=== PATIENT | female | born 1940 | race Caucasian/White ===

== ENCOUNTER 2021-05-14 15:36 | Inpatient (IN) | payer MEDICARE ==
[2021-05-14 16:29] LABS: #Eosinphils 0.1 10x3/uL (0.0-0.5); #Monocytes 0.6 10x3/uL (0.0-1.1); #Neutrophils 9.7 10x3/uL (1.5-8.4); %Basophils 0.2 % (0.0-2.0); %Eosinophils 0.7 % (0.0-6.0); %Monocytes 4.9 % (0.0-10.0); %Neutrophils 85.7 % (40.0-75.0); Hemoglobin 10.3 g/dL (12.0-15.5); Mean Corpuscular Hemoglobin 33.1 pg (27.0-33.0); Mean Corpuscular Volume 97.4 fl (81.6-98.3); Mean Platelet Volume 9.7 fl (7.4-10.4); Platelet Count 201 10x3/uL (150-450); RBC Distribution Width 13.3 % (11.5-14.5); Red Blood Cell (RBC) Count 3.11 10x6/uL (3.90-5.03); White Blood Cell (WBC) Count 11.3 10x3/uL (3.5-10.5)
[2021-05-14 16:46] LABS: INR-International Normal Ratio 1.1; PTT 28.7 sec (22.0-33.0); Prothrombin Time 12.1 sec (9.5-12.1)
[2021-05-14 16:49] LABS: ALT (SGPT) 15 U/L (8-55); AST (SGOT) 29 U/L (5-34); Albumin 3.7 g/dL (3.4-4.8); Alkaline Phosphatase 45 U/L (40-110); Anion Gap 15 mmol/L (10-20); BUN (Urea Nitrogen) 27 mg/dL (9.8-20.1); Bilirubin, Total 0.8 mg/dL (0.2-1.2); Calc. Creatinine Clearance 0 mL/min (70-130); Calcium 9.1 mg/dL (7.8-10.44); Carbon Dioxide 19 mmol/L (23-31); Chloride 102 mmol/L (98-107); Globulin 3.5 g/dL (2.4-3.5); Glucose 113 mg/dL (83-110); Potassium 3.8 mmol/L (3.5-5.1); Protein, Total 7.2 g/dL (5.8-8.1); Sodium 132 mmol/L (136-145)
[2021-05-14 17:44] LABS: Bilirubin Neg (Negative); Blood, Urine 50 (Negative); Clarity Clear (Clear); Glucose, Urine (Dipstick) Normal (Negative); Ketone, Urine Negative (Negative); Leukocyte 500 (Negative); Nitrite Positive (Negative); Protein, Urine (Dipstick) 30 mg/dl (Neg-Trace)
[2021-05-14 17:58] LABS: RBC/HPF 0-3 HPF (0-3); Squamous Epithelial 0-3 HPF (0-3); Transitional Epithelial 0-3 HPF (None Seen)
[2021-05-14 17:59] LABS: Bacteria/HPF 4+ HPF (None Seen)
[2021-05-14] MEDS ORDERED: Azithromycin 500 MG VIAL ONE (18:30)
[2021-05-14] MEDS ORDERED: cefTRIAXone\\ROCEPHIN 2 GM VIAL ONE (18:30)
[2021-05-14 20:21] VITALS: BMI 23.2
[2021-05-14] MEDS: NS 0.9% w/ 20 MEQ KCL 1,000 ML/1,000 ML BAG IV SCH (20:48)
[2021-05-14] MEDS: Apixaban 5 MG TAB PO SCH (20:50)
[2021-05-14] MEDS: Simvastatin 10 MG TAB PO SCH (20:50)
[2021-05-14] MEDS: Cefepime 2 GM in Sodium Chloride 0.9% 100 ML IVPB SCH (22:20)
[2021-05-15] MEDS: Cefepime 2 GM in Sodium Chloride 0.9% 100 ML IVPB SCH ×3 (05:47→22:29)
[2021-05-15 06:09] LABS: #Basophils 0.1 10x3/uL (0.0-0.2); #Eosinphils 0.2 10x3/uL (0.0-0.5); #Monocytes 0.5 10x3/uL (0.0-1.1); #Neutrophils 4.9 10x3/uL (1.5-8.4); %Basophils 0.7 % (0.0-2.0); %Eosinophils 2.2 % (0.0-6.0); %Lymphocytes 16.1 % (18.0-47.0); %Monocytes 7.5 % (0.0-10.0); %Neutrophils 73.1 % (40.0-75.0); Mean Corpuscular HGB CONC 33.1 g/dL (32.0-36.0); Mean Corpuscular Hemoglobin 32.6 pg (27.0-33.0); Mean Corpuscular Volume 98.6 fl (81.6-98.3); Mean Platelet Volume 9.8 fl (7.4-10.4); Platelet Count 177 10x3/uL (150-450); RBC Distribution Width 13.4 % (11.5-14.5); Red Blood Cell (RBC) Count 2.76 10x6/uL (3.90-5.03); White Blood Cell (WBC) Count 6.8 10x3/uL (3.5-10.5)
[2021-05-15 06:22] LABS: Anion Gap 11 mmol/L (10-20); BUN (Urea Nitrogen) 19 mg/dL (9.8-20.1); Calc. Creatinine Clearance 56 mL/min (70-130); Calcium 8.2 mg/dL (7.8-10.44); Carbon Dioxide 18 mmol/L (23-31); Chloride 112 mmol/L (98-107); Glucose 90 mg/dL (83-110); Potassium 3.7 mmol/L (3.5-5.1); Sodium 137 mmol/L (136-145)
[2021-05-15] MEDS: NS 0.9% w/ 20 MEQ KCL 1,000 ML/1,000 ML BAG IV SCH ×2 (06:29→22:13)
[2021-05-15] MEDS: Apixaban 5 MG TAB PO SCH ×2 (09:00→22:13)
[2021-05-15] MEDS ORDERED: Azithromycin 500 MG in Sodium Chloride 0.9% 250 ML 250 ML IVPB SCH (16:30)
[2021-05-15] MEDS ORDERED: Atenolol 25 MG TAB PO SCH (22:00)
[2021-05-15] MEDS ORDERED: Cefepime 2 GM VIAL ONE (22:06)
[2021-05-15] MEDS: Simvastatin 10 MG TAB PO SCH (22:13)
[2021-05-16] MEDS: NS 0.9% w/ 20 MEQ KCL 1,000 ML/1,000 ML BAG IV SCH ×2 (03:57→12:00)
[2021-05-16 04:28] LABS: #Eosinphils 0.3 10x3/uL (0.0-0.5); #Monocytes 0.6 10x3/uL (0.0-1.1); #Neutrophils 5.2 10x3/uL (1.5-8.4); %Basophils 0.6 % (0.0-2.0); %Eosinophils 3.5 % (0.0-6.0); %Lymphocytes 15.1 % (18.0-47.0); %Monocytes 7.9 % (0.0-10.0); %Neutrophils 72.3 % (40.0-75.0); Mean Corpuscular HGB CONC 32.5 g/dL (32.0-36.0); Mean Corpuscular Hemoglobin 32.9 pg (27.0-33.0); Mean Corpuscular Volume 101.3 fl (81.6-98.3); Mean Platelet Volume 9.4 fl (7.4-10.4); Platelet Count 210 10x3/uL (150-450); RBC Distribution Width 13.3 % (11.5-14.5); Red Blood Cell (RBC) Count 3.04 10x6/uL (3.90-5.03); White Blood Cell (WBC) Count 7.2 10x3/uL (3.5-10.5)
[2021-05-16 04:53] LABS: Anion Gap 14 mmol/L (10-20); BUN (Urea Nitrogen) 14 mg/dL (9.8-20.1); Calc. Creatinine Clearance 58 mL/min (70-130); Calcium 8.5 mg/dL (7.8-10.44); Carbon Dioxide 17 mmol/L (23-31); Chloride 110 mmol/L (98-107); Glucose 117 mg/dL (83-110); Sodium 137 mmol/L (136-145)
[2021-05-16] MEDS ORDERED: Furosemide 40 MG/4 ML VIAL SLOW IVP SCH (06:00)
[2021-05-16] MEDS: Apixaban 5 MG TAB PO SCH ×2 (09:35→20:29)
[2021-05-16] MEDS ORDERED: Cefepime 2 GM in Sodium Chloride 0.9% 100 ML IVPB SCH (10:00)
[2021-05-16] MEDS ORDERED: hydrALAZINE 20 MG/ML VIAL SLOW IVP PRN (10:39)
[2021-05-16] MEDS: Atenolol 25 MG TAB PO SCH (20:27)
[2021-05-16] MEDS: Simvastatin 10 MG TAB PO SCH (20:28)
[2021-05-17] MEDS: NS 0.9% w/ 20 MEQ KCL 1,000 ML/1,000 ML BAG IV SCH ×3 (00:53→05:41)
[2021-05-17] MEDS: NIFEdipine XL 60 MG TAB PO SCH (08:40)
[2021-05-17] MEDS: Apixaban 5 MG TAB PO SCH ×2 (08:41→22:23)
[2021-05-17] MEDS: Furosemide 40 MG/4 ML VIAL SLOW IVP SCH (15:34)
[2021-05-17] MEDS: Simvastatin 10 MG TAB PO SCH (22:18)
[2021-05-17] MEDS: Atenolol 25 MG TAB PO SCH (22:18)
[2021-05-18] MEDS: NS 0.9% w/ 20 MEQ KCL 1,000 ML/1,000 ML BAG IV SCH (04:58)
[2021-05-18] MEDS: Furosemide 40 MG/4 ML VIAL SLOW IVP SCH (05:07)
[2021-05-18] MEDS: NIFEdipine XL 60 MG TAB PO SCH (09:52)
[2021-05-18] MEDS: Apixaban 5 MG TAB PO SCH ×2 (09:52→22:30)
[2021-05-18] MEDS ORDERED: Acetaminophen 500 MG TAB PO PRN (14:17)
[2021-05-18] MEDS: Atenolol 25 MG TAB PO SCH (22:29)
[2021-05-18] MEDS: Simvastatin 10 MG TAB PO SCH (22:30)
[2021-05-19] MEDS: Apixaban 5 MG TAB PO SCH ×2 (08:50→21:29)
[2021-05-19] MEDS ORDERED: Amlodipine 5 MG TAB PO SCH (09:00)
[2021-05-19] MEDS ORDERED: Lisinopril 20 MG TAB PO SCH (21:00)
[2021-05-19] MEDS: Simvastatin 10 MG TAB PO SCH (21:29)
[2021-05-19] MEDS: Atenolol 25 MG TAB PO SCH (21:32)
[2021-05-20] MEDS: Apixaban 5 MG TAB PO SCH (08:12)
[2021-05-20 08:26] VITALS: TEMP 97.6
[2021-05-20 11:38] VITALS: BP 105/67
== END 2021-05-20 12:28 | disposition home or self-care (01) | DRG 871 ==
LOC: CSHERS 15:36 → CSHTELE 18:58
PROVIDERS: ADMIT Family Medicine; ATTEND Family Medicine
DX: A41.9 Sepsis, unspecified organism (principal); J18.9 Pneumonia, unspecified organism; J96.01 Acute respiratory failure with hypoxia; N39.0 Urinary tract infection, site not specified; J44.0 Chronic obstructive pulmonary disease with (acute) lower respiratory infection; Z66 Do not resuscitate; E78.5 Hyperlipidemia, unspecified; I48.91 Unspecified atrial fibrillation; S42.002A Fracture of unspecified part of left clavicle, initial encounter for closed fracture; Z79.01 Long term (current) use of anticoagulants; Z79.82 Long term (current) use of aspirin; Z79.899 Other long term (current) drug therapy; Z90.710 Acquired absence of both cervix and uterus
CPT/HCPCS: 36415; 71045; 71275; 80048; 80053; 81003; 81015; 83605; 83735; 84484; 85025; 85610; 85730; 87040; 87086; 93005; 93010; 93306; 94640; 94760; 96365; 96368; J0456; J0692; J0696; J1940; J1956; J3480; J3490; J7050; J7620

== ENCOUNTER 2021-10-16 10:57 | Observation (INO) | payer MEDICARE ==
[2021-10-16 12:05] LABS: ALT (SGPT) 12 U/L (8-55); AST (SGOT) 36 U/L (5-34); Albumin 3.8 g/dL (3.4-4.8); Alkaline Phosphatase 44 U/L (40-110); Anion Gap 16 mmol/L (10-20); BUN (Urea Nitrogen) 20 mg/dL (9.8-20.1); Bilirubin, Total 0.4 mg/dL (0.2-1.2); CK (CPK) 56 U/L (29-168); Calc. Creatinine Clearance 0 mL/min (70-130); Calcium 8.5 mg/dL (7.8-10.44); Carbon Dioxide 18 mmol/L (23-31); Chloride 106 mmol/L (98-107); Globulin 3.2 g/dL (2.4-3.5); Glucose 95 mg/dL (83-110); Lipase 116 U/L (8-78); Sodium 136 mmol/L (136-145)
[2021-10-16 12:06] LABS: #Monocytes 0.3 10x3/uL (0.0-1.1); #Neutrophils 1.9 10x3/uL (1.5-8.4); %Basophils 0.3 % (0.0-2.0); %Monocytes 8.1 % (0.0-10.0); %Neutrophils 55.3 % (40.0-75.0); Hemoglobin 11.3 g/dL (12.0-15.5); Mean Corpuscular HGB CONC 32.7 g/dL (32.0-36.0); Mean Corpuscular Hemoglobin 32.1 pg (27.0-33.0); Mean Corpuscular Volume 98.3 fl (81.6-98.3); Mean Platelet Volume 9.3 fl (7.4-10.4); Platelet Count 191 10x3/uL (150-450); RBC Distribution Width 13.8 % (11.5-14.5); Red Blood Cell (RBC) Count 3.52 10x6/uL (3.90-5.03); White Blood Cell (WBC) Count 3.5 10x3/uL (3.5-10.5)
[2021-10-16] MEDS ORDERED: Acetaminophen 325 MG TAB PO PRN (13:33)
[2021-10-16] MEDS ORDERED: Ondansetron ODT 4 MG TAB PO PRN (13:33)
[2021-10-16] MEDS ORDERED: Sodium Chloride 0.9% 1,000 ML IV SCH (13:45)
[2021-10-16] MEDS ORDERED: Guaifenesin DM 100-10/5 ML UDCUP PO PRN (14:01)
[2021-10-16 14:22] LABS: SARS-CoV-2 NAA Rapid Test DETECTED (NotDetected)
[2021-10-16 17:47] VITALS: BP 159/77
[2021-10-16] MEDS ORDERED: Simvastatin 10 MG TAB PO SCH (21:00)
[2021-10-16] MEDS ORDERED: Gemfibrozil 600 MG TAB PO SCH (21:00)
[2021-10-16] MEDS ORDERED: guaiFENesin ER 600 MG TAB PO SCH (21:00)
[2021-10-16] MEDS ORDERED: Aspirin Chewable 81 MG TAB PO SCH (21:00)
[2021-10-16] MEDS ORDERED: Apixaban 5 MG TAB PO SCH (21:00)
[2021-10-17] MEDS ORDERED: Atenolol 50 MG TAB PO SCH (09:00)
[2021-10-17] MEDS ORDERED: Cholecalciferol 1,000 UNITS (25 MCG) TAB PO SCH (09:00)
[2021-10-17] MEDS ORDERED: Zinc Sulfate 220 MG CAP PO SCH (09:00)
[2021-10-17] MEDS ORDERED: Ascorbic Acid 500 mg Chewable Tablet PO SCH (09:00)
== END 2021-10-16 19:45 | disposition home or self-care (01) ==
LOC: CSHERS 10:57 → CSHERHOLD 14:21
PROVIDERS: ADMIT Family Medicine; ATTEND Family Medicine
DX: R55 Syncope and collapse (principal); E86.0 Dehydration; U07.1 COVID-19; I48.21 Permanent atrial fibrillation; J44.9 Chronic obstructive pulmonary disease, unspecified; I10 Essential (primary) hypertension; E78.5 Hyperlipidemia, unspecified; D64.9 Anemia, unspecified; Z79.01 Long term (current) use of anticoagulants; Z79.899 Other long term (current) drug therapy; Z87.891 Personal history of nicotine dependence
CPT/HCPCS: 71045; 82550; 83605; 83690; 83880; 84484; 93005; 99284; G0378; U0002; 36415; 80053; 84443; 85025

== ENCOUNTER 2023-06-16 10:26 | Outpatient (CLI) | payer MEDICARE | END 2023-06-16 10:27 | disposition home or self-care (01) | LOC: CSHMAMMO 10:26 | PROVIDERS: ATTEND Internal Medicine | DX: Z13.820 Encounter for screening for osteoporosis (principal); S22.41XA Multiple fractures of ribs, right side, initial encounter for closed fracture; M81.0 Age-related osteoporosis without current pathological fracture; Z78.0 Asymptomatic menopausal state | CPT/HCPCS: 77080 ==

== ENCOUNTER 2025-06-04 09:10 | Outpatient (CLI) | payer OTHER ==
[2025-06-04 11:38] LABS: Estimated GFR - POC 55.0
[2025-06-04] MEDS ORDERED: Iopamidol 370 76% 100 ML VIAL ONE (14:06)
== END 2025-06-04 09:11 | disposition home or self-care (01) ==
LOC: CSHCT 09:10
PROVIDERS: ATTEND Radiology Radiation Oncology
DX: C34.12 Malignant neoplasm of upper lobe, left bronchus or lung (principal); Z92.3 Personal history of irradiation; R91.1 Solitary pulmonary nodule
CPT/HCPCS: 71260; 82565; Q9967